=== PATIENT | male | born 1935 | race Caucasian/White ===

== ENCOUNTER 2021-10-16 17:53 | Emergency (ER) | payer MEDICARE ==
[~2021-10-16] VITALS: Ht 177.8 cm; Wt 72.6 kg
[2021-10-16 18:05] VITALS: BP_SYST 157
[2021-10-16] MEDS ORDERED: LIDOCAINE PATCH 5% 1 EA TP ONE ×2 (18:30→21:25)
[2021-10-16 19:49] LABS: ANION GAP 8 (5-15); CALCIUM 8.8 mg/dL (8.4-11.0); CHLORIDE 102 mmol/L (98-107); CREATININE 1.18 mg/dL (0.55-1.30); GLUCOSE 324 mg/dL (70-99); POTASSIUM 4.2 mmol/L (3.5-5.1); SODIUM SERUM 137 mmol/L (136-145); UREA NITROGEN, BLOOD 16 mg/dL (8-21)
[2021-10-16 19:54] LABS: ALANINE AMINOTRANSFERASE 28 U/L (12-78); ALBUMIN 3.5 g/dL (3.4-4.8); ASPARTATE AMINOTRANSFERASE 15 U/L (10-37); TOTAL BILIRUBIN 0.3 mg/dL (0.0-1.0)
[2021-10-16 20:19] LABS: BASOPHILS % (AUTO) 0.7 % (0.0-2.0); EOSINOPHILS # (AUTO) 0.3 K/uL (0.0-0.4); EOSINOPHILS % (AUTO) 4.9 % (0.0-4.0); HEMATOCRIT 41.8 % (36-54); HEMOGLOBIN 14.1 g/dL (14.0-18.0); LYMPHOCYTES # (AUTO) 1.7 K/uL (1.0-5.5); MEAN CORPUSCULAR HEMOGLOBIN 32 pg (27-31); MEAN CORPUSCULAR HGB CONC 34 % (32-36); MEAN CORPUSCULAR VOLUME 96 fL (79.0-98.0); MONOCYTES # (AUTO) 0.4 K/uL (0.0-1.0); MONOCYTES % (AUTO) 5.4 % (1.7-9.3); NEUTROPHILS # (AUTO) 4.2 K/uL (1.8-7.7); PLATELET COUNT (AUTO) 178 K/uL (130-430); RED BLOOD CELL COUNT(AUTO) 4.37 MIL/uL (4.2-6.2); RED CELL DISTRIBUTION WIDTH 13.2 % (9.0-15.0); WHITE BLOOD COUNT (AUTO) 6.6 K/uL (4.8-10.8)
[2021-10-16 20:36] LABS: BILIRUBIN,URINE NEGATIVE (NEGATIVE); BLOOD, URINE NEGATIVE (NEGATIVE); CLARITY/URINE CLEAR (CLEAR); COLOR,URINE YELLOW (YELLOW); GLUCOSE,URINE 3+ (NEGATIVE); KETONES,URINE NEGATIVE (NEGATIVE); LEUKOCYTE ESTERASE ,URINE NEGATIVE (NEGATIVE); NITRITE, URINE NEGATIVE (NEGATIVE); PH,URINE 5.5 (5.0-8.0); PROTEIN URINE NEGATIVE (NEGATIVE); UROBILINOGEN,URINE 0.2 (0.2-1.0)
--- NOTE | 2021-10-16 20:38 | NUR ---
Patient walked to bed 5 for further treatment and evaluation.
--- NOTE | 2021-10-16 20:50 | NUR ---
MARILU Morton at bedside examining patient.
[2021-10-16] MEDS ORDERED: iohexoL 300 mgI/mL, 150 ML INFUS..BTL IV ONE (20:56)
[2021-10-16 20:57] LABS: RBC,URINE NONE SEEN /HPF (0-3)
[2021-10-16 20:58] LABS: BACTERIA,URINE None Seen /HPF (None Seen); MUCUS,URINE None Seen /LPF (None Seen); WBC,URINE 0-3 /HPF (0-3)
[2021-10-16] MEDS ORDERED: INSULIN ASPART 100 UNITS/ML, 10 ML VIAL (NovoLOG) SUBCUT PRN (21:00)
[2021-10-16] MEDS ORDERED: NACL 0.9% 1,000 ML IV ONE (21:00)
[2021-10-16] MEDS ORDERED: INSULIN LISPRO SLIDING SCALE 100 UNITS/ML VIAL (humaLOG) SUBCUT PRN (21:15)
[2021-10-16] MEDS ORDERED: INSULIN Lispro 100 UNITS/ML VIAL (humaLOG) ONE (21:32)
[2021-10-16] MEDS ORDERED: ACET-2634 PO (22:08)
[2021-10-16] MEDS ORDERED: LIDO1ADH22 TP (22:08)
[2021-10-16 22:55] VITALS: BP_SYST 140
--- NOTE | 2021-10-16 22:59 | NUR ---
deidre Patient given written and verbal discharge instructions and verbalizes understanding. ER MD discussed with patient the results and treatment provided. Patient in stable condition. ID arm band removed. IV catheter removed intact and dressing applied, no active bleeding. Rx of given. Patient educated on pain management and to follow up with PMD. Pain Scale 2. Opportunity for questions provided and answered. Medication side effect fact sheet provided. BS 191. Per , [place] to DC
== END 2021-10-16 22:56 | disposition home or self-care (01) ==
LOC: SED 17:53
DX: S30.1XXA Contusion of abdominal wall, initial encounter (principal); E11.9 Type 2 diabetes mellitus without complications; Z79.899 Other long term (current) drug therapy; W18.30XA Fall on same level, unspecified, initial encounter; Y93.89 Activity, other specified; Y92.89 Other specified places as the place of occurrence of the external cause; Y99.8 Other external cause status
CPT/HCPCS: 99285; 74177; 96360; 80053; 81000; 82962; 85025; 36415; 71100; 76376; 96372; Q9967; J7030

== ENCOUNTER 2022-01-29 12:46 | Emergency (ER) | payer OTHER ==
[~2022-01-29] VITALS: Ht 182.9 cm; Wt 72.6 kg
[~2022-01-29 12:46] MED LIST: ACET-2634 PO; LIDO1ADH22 TP
[2022-01-29 13:00] VITALS: BP_SYST 129
--- NOTE | 2022-01-29 13:18 | NUR ---
Patient triaged and placed in waiting room. VSS and patient appears in no acute distress at this time. Accompanied by DAUGHTERS, awaiting available bed, and MD notified of need for MSE.
--- NOTE | 2022-01-29 15:05 | NUR ---
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
[2022-01-29] MEDS ORDERED: levETIRAcetam 500 MG IV PREMIX 100 ML IV ONE (15:30)
--- NOTE | 2022-01-29 15:30 | NUR ---
EDP AT BEDSIDE FOR INITIAL ASSESSMENT WITH ORDER CHESTER OUT.
[2022-01-29 15:51] LABS: BASOPHILS # (AUTO) 0.1 K/uL (0.0-0.2); BASOPHILS % (AUTO) 0.8 % (0.0-2.0); EOSINOPHILS # (AUTO) 0.1 K/uL (0.0-0.4); HEMATOCRIT 41.2 % (36-54); LYMPHOCYTES # (AUTO) 1.8 K/uL (1.0-5.5); LYMPHOCYTES % (AUTO) 21.9 % (20.5-51.5); MEAN CORPUSCULAR HEMOGLOBIN 32 pg (27-31); MEAN CORPUSCULAR HGB CONC 34 % (32-36); MEAN CORPUSCULAR VOLUME 95 fL (79.0-98.0); MONOCYTES # (AUTO) 0.5 K/uL (0.0-1.0); MONOCYTES % (AUTO) 6.6 % (1.7-9.3); NEUTROPHILS # (AUTO) 5.6 K/uL (1.8-7.7); NEUTROPHILS % (AUTO) 69.7 % (40.0-70.0); PLATELET COUNT (AUTO) 175 K/uL (130-430); RED BLOOD CELL COUNT(AUTO) 4.33 MIL/uL (4.2-6.2)
--- NOTE | 2022-01-29 16:10 | NUR ---
PATIENT BACK FROM CT SCAN, PLACED BACK IN BED, AWAITING FOR RESULT FOR DISPOSITION.
[2022-01-29 17:15] LABS: ANION GAP 7 (5-15); CALCIUM 8.9 mg/dL (8.4-11.0); CHLORIDE 101 mmol/L (98-107); CREATININE 1.15 mg/dL (0.55-1.30); GLUCOSE 239 mg/dL (70-99); UREA NITROGEN, BLOOD 13 mg/dL (8-21)
[2022-01-29 17:22] LABS: ALANINE AMINOTRANSFERASE 34 U/L (12-78); ALBUMIN 3.6 g/dL (3.4-4.8); ASPARTATE AMINOTRANSFERASE 27 U/L (10-37); TOTAL BILIRUBIN 0.4 mg/dL (0.0-1.0)
--- NOTE | 2022-01-29 17:50 | NUR ---
ALL RESULT BACK, EDP REASSESS PATIENT AND D/C HOME WITH INSTRUCTION. H/L REMOVED, SKIN INTACT.
[2022-01-29 17:51] VITALS: BP_SYST 132
--- NOTE | 2022-01-29 17:56 | NUR ---
Patient given written and verbal discharge instructions and verbalizes understanding. ER MD discussed with patient the results and treatment provided. Patient in stable condition. ID arm band removed. IV catheter removed intact and dressing applied, no active bleeding. Rx of given. Patient educated on pain management and to follow up with PMD. Pain Scale 0. Opportunity for questions provided and answered. Medication side effect fact sheet provided.
== END 2022-01-29 17:53 | disposition home or self-care (01) ==
LOC: SED 12:46
DX: G40.A09 Absence epileptic syndrome, not intractable, without status epilepticus (principal); R29.810 Facial weakness; E11.9 Type 2 diabetes mellitus without complications; Z79.899 Other long term (current) drug therapy
CPT/HCPCS: 99284; 96365; 70450; 80053; 85025; 84484; 36415; 76376; J1953

== ENCOUNTER 2022-08-06 12:13 | Inpatient (IN) | payer OTHER ==
[~2022-08-06] VITALS: Ht 182.9 cm; Wt 78.0 kg
[2022-08-06 12:24] VITALS: BP_SYST 123
[2022-08-06 13:12] LABS: BILIRUBIN,URINE NEGATIVE (NEGATIVE); COLOR,URINE YELLOW (YELLOW); GLUCOSE,URINE 3+ (NEGATIVE); KETONES,URINE 1+ (NEGATIVE); LEUKOCYTE ESTERASE ,URINE NEGATIVE (NEGATIVE); NITRITE, URINE NEGATIVE (NEGATIVE); PROTEIN URINE TRACE (NEGATIVE); UROBILINOGEN,URINE 0.2 (0.2-1.0)
[2022-08-06 13:18] LABS: BLOOD, URINE TRACE (NEGATIVE)
[2022-08-06] MEDS ORDERED: LORazepam 2 MG/ML VIAL IVP ONE (13:30)
[2022-08-06 13:37] LABS: BARBITURATE, URINE POSITIVE (NEG <=200); METHAMPHETAMINES SCREEN,URINE NEGATIVE (NEG <=500); URINE AMPHETAMINE NEGATIVE (NEG <=500); URINE METHADONE NEGATIVE (NEG <=200)
[2022-08-06 13:38] LABS: BENZODIAZEPINE, URINE NEGATIVE (NEG <=150); CANNABINOID, URINE NEGATIVE (NEG <=50); COCAINE, URINE NEGATIVE (NEG <=150); OPIATE, URINE NEGATIVE (NEG <=100); PHENCYCLIDINE SCREEN,URINE NEGATIVE (NEG <=25); UR TRICYCLIC ANTIDEPRESSANTS NEGATIVE (NEG <=300); URINE OXYCODONE SCREEN NEGATIVE (NEG <=100); URINE PROPOXYPHENE SCREEN NEGATIVE (NEG <=300)
[2022-08-06 13:43] LABS: BASOPHILS % (AUTO) 0.4 % (0.0-2.0); EOSINOPHILS % (AUTO) 0.5 % (0.0-4.0); HEMATOCRIT 42.5 % (36-54); HEMOGLOBIN 14.6 g/dL (14.0-18.0); LYMPHOCYTES # (AUTO) 1.6 K/uL (1.0-5.5); LYMPHOCYTES % (AUTO) 19.7 % (20.5-51.5); MEAN CORPUSCULAR HEMOGLOBIN 33 pg (27-31); MEAN CORPUSCULAR HGB CONC 34 % (32-36); MEAN CORPUSCULAR VOLUME 97 fL (79.0-98.0); MONOCYTES # (AUTO) 0.5 K/uL (0.0-1.0); MONOCYTES % (AUTO) 5.5 % (1.7-9.3); NEUTROPHILS % (AUTO) 73.9 % (40.0-70.0); PLATELET COUNT (AUTO) 168 K/uL (130-430); RED BLOOD CELL COUNT(AUTO) 4.39 MIL/uL (4.2-6.2); RED CELL DISTRIBUTION WIDTH 12.9 % (9.0-15.0); WHITE BLOOD COUNT (AUTO) 8.2 K/uL (4.8-10.8)
[2022-08-06 13:45] LABS: BACTERIA,URINE FEW /HPF (None Seen); RBC,URINE 0-3 /HPF (0-3); WBC,URINE NONE SEEN /HPF (0-3)
[2022-08-06 13:54] LABS: PROTHROMBIN TIME 10.6 SECS (9.5-12.5)
[2022-08-06 13:57] LABS: ALANINE AMINOTRANSFERASE 29 U/L (12-78); ALBUMIN 3.7 g/dL (3.4-4.8); ANION GAP 7 (5-15); ASPARTATE AMINOTRANSFERASE 24 U/L (10-37); CALCIUM 8.7 mg/dL (8.4-11.0); CHLORIDE 96 mmol/L (98-107); CREATININE 1.05 mg/dL (0.55-1.30); GLUCOSE 240 mg/dL (70-99); TOTAL BILIRUBIN 0.7 mg/dL (0.0-1.0); UREA NITROGEN, BLOOD 13 mg/dL (8-21)
[2022-08-06 14:01] LABS: ALCOHOL, BLOOD < 3 mg/dL (<10)
[2022-08-06 14:54] LABS: CLARITY/URINE CLEAR (CLEAR)
[2022-08-06] MEDS ORDERED: levETIRAcetam 1,000 MG in NS 90 ML IV ONE (15:30)
[2022-08-06] MEDS ORDERED: levETIRAcetam 1,000 MG IV BAG 100 ML IV ONE (15:30)
[2022-08-06] MEDS ORDERED: METF-379 PO (17:58)
[2022-08-06] MEDS ORDERED: PHEN30TA49 PO (17:58)
[2022-08-06] MEDS ORDERED: SIMV-345 PO (17:58)
[2022-08-06] MEDS ORDERED: GLIP5TAB13 PO (18:00)
[2022-08-06 18:55] VITALS: BP_SYST 98
[2022-08-06 19:53] VITALS: BP_SYST 98
[2022-08-06] MEDS: levETIRAcetam 500 MG TABLET PO SCH (21:00)
[2022-08-06 23:55] VITALS: BP_SYST 106
[2022-08-07 08:00] VITALS: BP_SYST 98
[2022-08-07] MEDS: levETIRAcetam 500 MG TABLET PO SCH ×2 (09:15→21:29)
[2022-08-07 12:51] VITALS: BP_SYST 103
[2022-08-07] MEDS ORDERED: GADOTERATE MEGLUMINE 7.5 MMOL/15 ML VIAL IV ONE (13:25)
[2022-08-07 16:48] VITALS: BP_SYST 101
[2022-08-08 00:35] VITALS: BP_SYST 121
[2022-08-08 08:00] VITALS: BP_SYST 118
[2022-08-08] MEDS: levETIRAcetam 500 MG TABLET PO SCH ×2 (09:37→21:56)
[2022-08-08] MEDS ORDERED: ACETAMINOPHEN 325 MG TABLET PO PRN (11:00)
[2022-08-08 11:44] VITALS: BP_SYST 122
[2022-08-08] MEDS: INSULIN REGULAR, HUMAN 100 UNITS/ML, 3 ML VIAL (humuLIN R) SUBCUT PRN ×3 (12:06→21:56)
[2022-08-08 18:36] VITALS: BP_SYST 112
[2022-08-08] MEDS ORDERED: LEVE500T9 PO ×2 (18:40)
[2022-08-08 20:00] VITALS: BP_SYST 103
[2022-08-09 01:35] VITALS: BP_SYST 118
[2022-08-09 05:40] LABS: BASOPHILS % (AUTO) 0.6 % (0.0-2.0); EOSINOPHILS # (AUTO) 0.2 K/uL (0.0-0.4); EOSINOPHILS % (AUTO) 3.3 % (0.0-4.0); HEMATOCRIT 40.6 % (36-54); HEMOGLOBIN 13.9 g/dL (14.0-18.0); LYMPHOCYTES # (AUTO) 1.4 K/uL (1.0-5.5); LYMPHOCYTES % (AUTO) 21.4 % (20.5-51.5); MEAN CORPUSCULAR HEMOGLOBIN 33 pg (27-31); MEAN CORPUSCULAR HGB CONC 34 % (32-36); MEAN CORPUSCULAR VOLUME 97 fL (79.0-98.0); MONOCYTES # (AUTO) 0.5 K/uL (0.0-1.0); MONOCYTES % (AUTO) 8.1 % (1.7-9.3); NEUTROPHILS # (AUTO) 4.5 K/uL (1.8-7.7); NEUTROPHILS % (AUTO) 66.6 % (40.0-70.0); PLATELET COUNT (AUTO) 166 K/uL (130-430); RED CELL DISTRIBUTION WIDTH 13.1 % (9.0-15.0); WHITE BLOOD COUNT (AUTO) 6.7 K/uL (4.8-10.8)
[2022-08-09 05:53] LABS: ANION GAP 9 (5-15); CALCIUM 7.9 mg/dL (8.4-11.0); CHLORIDE 99 mmol/L (98-107); CREATININE 1.01 mg/dL (0.55-1.30); GLUCOSE 211 mg/dL (70-99); UREA NITROGEN, BLOOD 20 mg/dL (8-21)
[2022-08-09] MEDS: INSULIN REGULAR, HUMAN 100 UNITS/ML, 3 ML VIAL (humuLIN R) SUBCUT PRN ×2 (06:13→11:07)
[2022-08-09 08:03] VITALS: BP_SYST 140
[2022-08-09] MEDS: levETIRAcetam 500 MG TABLET PO SCH (08:32)
[2022-08-09] MEDS ORDERED: POTASSIUM CHLORIDE 20 MEQ TAB.PRT.SR PO ONE (10:30)
[2022-08-09 12:05] VITALS: BP_SYST 138
[2022-08-09] MEDS ORDERED: LEVE500T9 PO (13:11)
[2022-08-09] MEDS ORDERED: [UNRECOGNIZED DRUG - CODE] PO (13:15)
[2022-08-09 14:21] VITALS: BP_SYST 118
[2022-08-09 14:45] VITALS: BP_SYST 119
== END 2022-08-09 16:35 | disposition home or self-care (01) | DRG 83 ==
LOC: SED 12:13 → SMU 16:50 → OBSVTOIN 08-07 16:41
PROVIDERS: ADMIT Specialist; ATTEND Specialist
PROC: 4A10X4Z Monitoring of Central Nervous Electrical Activity, External Approach (ICD-10-PCS; principal; 2022-08-07)
DX: S06.9XAA Unspecified intracranial injury with loss of consciousness status unknown, initial encounter (principal); G40.109 Localization-related (focal) (partial) symptomatic epilepsy and epileptic syndromes with simple partial seizures, not intractable, without status epilepticus; E11.9 Type 2 diabetes mellitus without complications; I10 Essential (primary) hypertension; E78.5 Hyperlipidemia, unspecified; Z87.820 Personal history of traumatic brain injury; G30.9 Alzheimer's disease, unspecified; F02.80 Dementia in other diseases classified elsewhere, unspecified severity, without behavioral disturbance, psychotic disturbance, mood disturbance, and anxiety
CPT/HCPCS: 36415; 70450-TC; 70551; 71045; 76376; 80048; 80053; 80307; 81000; 82140; 83605; 84484; 85025; 85610-TC; 85730-TC; 87040; 93005; 95816; 96365; 96375; 97110-GP; 97116-GP; 97530-GP; 99291; A9575; G0378; G0482; J1815; J1953; J2060